=== PATIENT | female | born 1945 | race Caucasian/White ===

== ENCOUNTER 2018-05-17 14:22 | Emergency (ER) | payer OTHER ==
[2018-05-17 14:47] VITALS: TEMP 98.6
[2018-05-17 15:03] LABS: INR 3.52 (0.86-1.12)
[2018-05-17 15:10] LABS: BASOPHILS % (AUTO) 1 % (0-3); EOSINOPHILS % (AUTO) 1 % (0-9); HEMATOCRIT 37 % (35-47); HEMOGLOBIN 12.6 gm/dl (12.0-15.5); LYMPHOCYTES % (AUTO) 9.9 % (10-50); MEAN CORPUSCULAR HEMOGLOBIN 30.8 pg (27.0-32.0); MEAN CORPUSCULAR VOLUME 90 fL (81-99); MONOCYTES % (AUTO) 12.5 % (0-12); NEUTROPHILS % (AUTO) 76.1 % (37-80)
[2018-05-17 15:11] LABS: ALBUMIN 2.5 gm/dl (3.4-5.0); BILIRUBIN,TOTAL 0.4 mg/dl (0.2-1.0); CALCIUM 8.8 mg/dl (8.5-10.1); CARBON DIOXIDE 27.7 mEq/L (21-32); CREATININE 1.05 mg/dl (0.60-1.00); POTASSIUM 3.8 mMol/L (3.5-5.1); TOTAL PROTEIN 7.8 gm/dl (6.4-8.2)
[2018-05-17 17:40] VITALS: BP 116/84; PULSE 74; RESP 20; O2SAT 94
== END 2018-05-17 17:15 | disposition home or self-care (01) | DRG 605 ==
LOC: ED 14:22
DX: S80.12XA Contusion of left lower leg, initial encounter (principal); Z79.01 Long term (current) use of anticoagulants; R22.2 Localized swelling, mass and lump, trunk
CPT/HCPCS: 71275; 80053; 85025; 85610; 99283; Q9967

== ENCOUNTER 2018-07-05 14:51 | Emergency (ER) | payer OTHER ==
[2018-07-05] MEDS ORDERED: SODIUM CHLORIDE 0.9% 1000ML 1,000 ML IV ONE (14:57)
[2018-07-05 15:10] LABS: HEMATOCRIT 32 % (35-47); HEMOGLOBIN 10.4 gm/dl (12.0-15.5); MEAN CORPUSCULAR HEMOGLOBIN 28.1 pg (27.0-32.0); MEAN CORPUSCULAR HGB CONC 32.1 gm/dl (32.0-36.0); MEAN CORPUSCULAR VOLUME 87 fL (81-99)
[2018-07-05 15:14] LABS: LACTIC ACID < 0.8 mMol/L (0.0-2.0)
[2018-07-05 15:33] LABS: INFLUENZA A NEGATIVE (NEGATIVE); INFLUENZA B NEGATIVE (NEGATIVE)
[2018-07-05] MEDS ORDERED: PIPERACILLIN/TAZOBACT 3.375 GM 3.375 GM in SODIUM CHLORIDE 0.9% 100 ML 100 ML IV ONE (15:35)
[2018-07-05 15:36] LABS: ALBUMIN 2.3 gm/dl (3.4-5.0); ALKALINE PHOSPHATASE 101 IU/L (46-116); ALT 18 IU/L (14-63); AST 16 IU/L (15-37); BILIRUBIN,TOTAL 0.6 mg/dl (0.2-1.0); BLOOD UREA NITROGEN 9 mg/dl (7-18); CALCIUM 8.4 mg/dl (8.5-10.1); CARBON DIOXIDE 28.9 mEq/L (21-32); CHLORIDE 96 mMol/L (98-107); GLUCOSE 113 mg/dl (74-106); POTASSIUM 3.9 mMol/L (3.5-5.1); SODIUM 132 mMol/L (136-145); TOTAL PROTEIN 5.9 gm/dl (6.4-8.2)
[2018-07-05] MEDS ORDERED: PIPERACILLIN/TAZOBACT 3.375 GM PDS IV ONE (15:37)
[2018-07-05 15:38] LABS: APPEARANCE,URINE Slightly Cloudy; BILIRUBIN,URINE 1+ (NEGATIVE); COLOR,URINE Amber; GLUCOSE, URINE (UA) NEGATIVE (NEGATIVE); KETONES,URINE NEGATIVE (NEGATIVE); LEUKOCYTE ESTERASE ,URINE NEGATIVE (NEGATIVE); NITRATE,URINE NEGATIVE (NEGATIVE); OCCULT BLOOD,URINE TRACE LYSED (NEG-TRACE); UROBILINOGEN,URINE 0.2 (0.2-1.0 EU)
[2018-07-05 15:46] LABS: BACTERIA 1+ (< 1+); CRYSTALS NEGATIVE (0-3 AVE/HPF); EPITHELIAL CELLS 0-3 (SQUAMOUS); ICTOTEST,URINE NEGATIVE (NEGATIVE); RBC,URINE 0-2 (0-3AV/HPF); WBC,URINE NEGATIVE (0-5AV/HPF)
[2018-07-05] MEDS ORDERED: SODIUM CHLORIDE 0.9% FLUSH 10 ML SOL IV PRN (15:50)
[2018-07-05] MEDS ORDERED: ACETAMINOPHEN 500 MG 500 MG TAB PO ONE (15:59)
[2018-07-05] MEDS ORDERED: ACETAMINOPHEN 500 MG 500 MG TAB ONE (16:00)
[2018-07-05 16:34] LABS: BAND NEUTROPHILS % (MANUAL) 0 %; BASOPHILS % (MANUAL) 0 % (0-3); EOSINOPHILS % (MANUAL) 4 % (0-9); LYMPHOCYTES % (MANUAL) 28 % (10-50); METAMYELOCYTES%(MANUAL) 8; MONOCYTES % (MANUAL) 48 % (0-12); NEUTROPHILS % (MANUAL) 8 % (37-80); PROMYELOCYTES % 4
[2018-07-05 16:35] LABS: ANISOCYTOSIS SLIGHT AMT; OVALOCYTES PRESENT; POIKILOCYTOSIS SLIGHT AMT; TOTAL CELLS COUNTED 25
[2018-07-05 16:40] VITALS: BP 108/68; PULSE 111; RESP 30; O2SAT 96
[2018-07-05 16:42] VITALS: TEMP 102.2
== END 2018-07-05 16:54 | disposition short-term general hospital (02) | DRG 810 ==
LOC: ED 14:51
DX: D70.9 Neutropenia, unspecified (principal); R50.81 Fever presenting with conditions classified elsewhere; R22.2 Localized swelling, mass and lump, trunk; R11.10 Vomiting, unspecified
CPT/HCPCS: 36415; 36591; 71045; 80053; 81001; 85007; 85027; 87040; 87077; 87088; 87186; 87804; 93005; 96365; 99291; J2543